=== PATIENT | female | born 1995 | race Caucasian/White ===

== ENCOUNTER 2017-02-08 15:42 | Outpatient (CLI) | payer MEDICAID, OTHER ==
[~2017-02-08] VITALS: Ht 162.6 cm; Wt 82.3 kg
[2017-02-08 16:02] VITALS: Ht 162.6 cm; Wt 82.3 kg
[2017-02-08 16:03] VITALS: BP 112/60; PULSE 115
[2017-02-08] MEDS ORDERED: PRENAT PO (16:05)
[2017-02-08 16:54] LABS: ADD UMIC YES; URINE BILIRUBIN (Dip) NEGATIVE (NEGATIVE); URINE BLOOD (Dip) NEGATIVE (NEGATIVE); URINE COLOR YELLOW (YELLOW); URINE GLUCOSE (Dip) NEGATIVE (NEGATIVE); URINE KETONES (Dip) 3+ (NEGATIVE); URINE LEUKOCYTE ESTERASE (Dip) NEGATIVE (NEGATIVE); URINE NITRITE (Dip) NEGATIVE (NEGATIVE); URINE TOTAL PROTEIN (Dip) TRACE (NEGATIVE); URINE UROBILINOGEN (Dip) 0.2 E.U./dL (0.1-1.0)
[2017-02-08 17:07] LABS: BACTERIA,URINE FEW; SQUAMOUS EPITHELIAL CELL,UR MODERATE; URINE RBCS NONE SEEN /HPF (0)
[2017-02-08] MEDS ORDERED: METOCLOPRAMIDE 10 MG INJ IV ONE (17:30)
[2017-02-08] MEDS ORDERED: LACTATED RINGER'S 1,000 ML IV SCH (17:30)
[2017-02-08 18:02] LABS: ADD SCAN DIFF NO
[2017-02-08 18:04] LABS: ABNORMAL IP MESSAGE 1; BASOPHILS % 0.2 % (0.0-2.0); HEMATOCRIT 34.5 % (37.0-47.0); HEMOGLOBIN 11.5 g/dl (12.0-16.0); LYMPHOCYTES # 0.6 10^3/ul (0.8-2.9); LYMPHOCYTES % 4.4 % (15.0-51.0); MEAN CORPUSCULAR HEMOGLOBIN 31.2 pg (29.0-33.0); MEAN CORPUSCULAR HGB CONC 33.3 g/dl (32.0-37.0); MEAN CORPUSCULAR VOLUME 93.5 fl (82.0-101.0); MONOCYTE # 0.5 10^3/ul (0.3-0.9); MONOCYTES % 3.4 % (0.0-11.0); NEUTROPHIL # 12.2 10^3/ul (1.6-7.5); NEUTROPHILS % 91.3 % (39.0-77.0); PLATELET COUNT 330 10^3/UL (140-415); RED BLOOD COUNT 3.69 10^6/ul (4.20-5.40); RED CELL DISTRIBUTION WIDTH 13.6 % (11.5-14.5); WHITE BLOOD COUNT 13.3 10^3/ul (4.8-10.8)
[2017-02-08 18:25] LABS: ALBUMIN 4.1 g/dl (3.3-4.9); ALBUMIN/GLOBULIN RATIO 1.32; BILIRUBIN,INDIRECT 0.2 mg/dl (0-1.1); BILIRUBIN,TOTAL 0.2 mg/dl (0.2-1.3); CALCIUM 8.5 mg/dl (8.4-10.2); CREATININE 0.43 mg/dl (0.44-1.00); POTASSIUM 3.5 mmol/L (3.5-5.1); TOTAL PROTEIN 7.2 g/dl (6.1-8.1)
--- NOTE | 2017-02-08 21:27 | TRIAGE ---
OB Triage Datetime Report Generated by CPN: 02/08/2017 21:27 Datetime: 02/08/2017 17:01 Stage of : OB Triage Datetime: 02/08/2017 15:58 Stage of : OB Triage Assessment Type: Triage EGA: 31.5 Maternal Assessment Level of Consciousness: Fully Conscious DTR's/Clonus: DTRs 2+; No Clonus Headache: Denies Blurred Vision: No Respiratory Effort: Unlabored; Regular Rhythm; Equal Expansion Breath Sounds, Left: Clear and Equal Breath Sounds, Right: Clear and Equal Nausea/Vomiting: Hx of Nausea/Vomiting RUQ Epigastric Pain: Denies Facial Edema: None Temperature Route: Axillary Fall Risk Assessment History of Falling: (0) No Secondary Diagnosis: (0) No Ambulatory Aid: (0) Bedrest/Nurse Assist IV Therapy: (0) No Gait: (0) Normal/Bedrest/Immobile Mental Status: (0) Oriented to Own Ability Fall Score: 0 Fall Risk Score Definition: No Risk: No action required Labor Evaluation Frequency: 0 Monitor Mode: External Resting Tone Donovan: Relaxed Heart Rate FHR Baseline Rate: 165 Monitor Mode: External US Variability: Moderate 6-25 bpm Accelerations: 10X10 Decelerations: None Category: Category I Pain Assessment Pain Scale: 0 Pain Presence: None/Denies Pain Type: N/A Pain Goal: 3 Pain Relief Measures: Comfort Measures Datetime: 02/08/2017 15:56 Time of Arrival: 02/08/2017 15:34 Arrived By: Ambulatory Arrived From: Home Chief Complaint: C/O VOMITING X3 TODAY, DENIES, BLEEDING, LEAKING OF FLUID OR UC'S. SM PAIN ON L OWER LEFT QUADRANT OF ABDOMEN FELT FOR A VERY SHORT TIME AFTER VOMITING. Movement: Present Contractions: Denies/Absent Rupture of Membranes: Denies Vaginal Bleeding: None Vaginal Discharge: Denies Recent Sexual Intercouse: Denies Abdominal Trauma: Not Applicable Patient Complaints: Nausea; Vomiting Initial Plan: MONITOR,
--- NOTE | 2017-02-08 21:55 | QN ---
Documentation Comment 21-year-old with IUP at 31 weeks and 5 days presented with complaint of vomiting 3 times today after she ate outside. She denies any diarrhea. Denies any fever or chills. Patient reports the same symptoms in other family member who ate the same food with her yesterday. She denies any vaginal bleeding, leaking of fluid decreased movement or contractions. Physical examination: General appearance alert and oriented 4 patient appears to be in mild distress. Abdomen: Soft, gravid, fundal height consistent with gestational age No abdominal tenderness, no guarding, no rigidity no evidence of acute abdomen Extremities: No calf tenderness, no click no edema Hematology - 72 Hrs Test 02/08/17 17:45 White Blood Count 13.310^3/ul (4.8-10.8) H Red Blood Count 3.6910^6/ul (4.20-5.40) L Hemoglobin 11.5g/dl (12.0-16.0) L Hematocrit 34.5% (37.0-47.0) L Mean Corpuscular Volume 93.5fl (82.0-101.0) Mean Corpuscular Hemoglobin 31.2pg (29.0-33.0) Mean Corpuscular Hemoglobin Concent 33.3g/dl (32.0-37.0) Red Cell Distribution Width 13.6% (11.5-14.5) Platelet Count 57196^3/UL (140-415) Mean Platelet Volume 10.0fl (7.4-10.4) Neutrophils % 91.3% (39.0-77.0) H Lymphocytes % 4.4% (15.0-51.0) L Monocytes % 3.4% (0.0-11.0) Eosinophils % 0.0% (0.0-7.0) Basophils % 0.2% (0.0-2.0) Nucleated Red Blood Cells % 0.0/100WBC (0.0-0.0) Neutrophils # 12.210^3/ul (1.6-7.5) H Lymphocytes # 0.610^3/ul (0.8-2.9) L Monocytes # 0.510^3/ul (0.3-0.9) Eosinophils # 0.010^3/ul (0.0-0.5) Basophils # 0.010^3/ul (0.0-0.1) Nucleated Red Blood Cells # 0.010^3/ul (0.0-0.0) Chemistry Test 02/08/17 17:45 Sodium Level 137mmol/L (135-144) Potassium Level 3.5mmol/L (3.5-5.1) Chloride Level 112mmol/L (97-110) H Carbon Dioxide Level 22mmol/L (21-31) Anion Gap 7 (8-16) L Blood Urea Nitrogen 7mg/dl (7-20) Creatinine 0.43mg/dl (0.44-1.00) L Glucose Level 81mg/dl (70-220) Calcium Level 8.5mg/dl (8.4-10.2) Total Bilirubin 0.2mg/dl (0.2-1.3) Direct Bilirubin 0.00mg/dl (0.00-0.20) Indirect Bilirubin 0.2mg/dl (0-1.1) Aspartate Amino Transf (AST/SGOT) 21IU/L (15-46) Alanine Aminotransferase (ALT/SGPT) 27IU/L (13-69) Alkaline Phosphatase 91IU/L (42-121) Total Protein 7.2g/dl (6.1-8.1) Albumin 4.1g/dl (3.3-4.9) Globulin 3.10g/dl (1.3-3.2) Albumin/Globulin Ratio 1.32 Assessment: IUP at 31 weeks and 5 days, no evidence of labor No obstetrics issue at this time Nausea and vomiting, after eating outside. Likely related to gastroenteritis. Patient received IV hydration and antiemetic Symptoms resolved. She passed p.o. challenge. Plan: DC home. Reglan as needed nausea P.o. hydration Strict labor precaution and kick count discussed. Follow-up with OB clinic in 1-2 days with her primary OB recommended. Patient verbalized understanding all above discussions. RACHEL SEPULVEDA MD February 08, 2017 21:55
== END 2017-02-08 20:38 | disposition home or self-care (01) ==
LOC: OBT 15:42 → L-D 15:42 → OBT 20:38
PROVIDERS: ATTEND Obstetrics & Gynecology
DX: O21.2 Late vomiting of pregnancy (principal); Z3A.31 31 weeks gestation of pregnancy
CPT/HCPCS: 36415; 80053; 81001; 85025; 96361; 96374; J2765; J7120; Z7500; G0463

== ENCOUNTER 2017-03-29 10:52 | Outpatient (CLI) | payer OTHER ==
[~2017-03-29] VITALS: Ht 167.6 cm; Wt 88.5 kg
[~2017-03-29 10:52] MED LIST: PRENAT PO
[2017-03-29 11:04] VITALS: Ht 167.6 cm; Wt 88.5 kg
[2017-03-29 11:05] VITALS: BP 116/65; PULSE 99; RESP 20
[2017-03-29] MEDS ORDERED: LACTATED RINGER'S 1,000 ML IV SCH (11:20)
[2017-03-29] MEDS ORDERED: CEFAZOLIN 2 GM/50 ML (PMX) 50 ML IVPB SCH (11:30)
[2017-03-29] MEDS ORDERED: CARBOPROST 250 MCG INJ IM PRN (11:30)
[2017-03-29] MEDS ORDERED: OXYTOCIN 30 UNITS/LR 500 ML IV SCH (11:30)
[2017-03-29] MEDS ORDERED: MISOPROSTOL 200 MCG TAB PR PRN (11:30)
[2017-03-29] MEDS ORDERED: OXYTOCIN 30 UNITS/LR 500 ML IV PRN (11:30)
[2017-03-29] MEDS ORDERED: METHYLERGONOVINE 0.2 MG INJ IM PRN (11:30)
--- NOTE | 2017-03-29 14:00 | RADRPT ---
PROCEDURE: OB ultrasound for biophysical profile CLINICAL INDICATION: Biophysical profile. TECHNIQUE: Multiple sonographic images of the pelvis were obtained. Transabdominal view of the gr avid uterus are available for review. The images were reviewed on a PACS workstation. COMPARISON: None FINDINGS: breathing movement = 2/2 tone = 2/2 motion = 2/2 Quantitative amniotic fluid volume = 2/2 JESSICA = 9.0 cm Single live intrauterine with cardiac activity at 130 beats per minute. There is a posterior placenta without previa. IMPRESSION: 1. Single living intrauterine gestation in cephalic position. 2. Biophysical profile = 8. 3. JESSICA = 9.0 cm. RPTAT: [facility] Physician Rodney Date Time Electronically viewed and signed by Angelito Bagley Physician on 03/29/2017 14:00 /
[2017-03-29] MEDS ORDERED: ACETAMINOPHEN 500 MG TAB PO STA (14:30)
--- NOTE | 2017-03-29 16:15 | PN ---
Triage Information Date/Time March 29 2017 Weeks of Gestation 38 weeks and 5 days : 1 Para: 0 Diabetes: none Hypertention: none Additional information 22-year-old with IUP at 30 weeks and 5 days with low pack pain noted in testing currently being followed by NST biweekly. She is here today for NST. She was noted to have some contractions on the monitor. She denied any leaking of fluid or vaginal bleeding or decreased movement. Cervical exam 1 fingertip long and closed. Repeat exam after observation for couple hours did not show any cervical change. Patient received Tylenol and hydration and her feeling of cramps resolved. Objective Vital Signs Date Time Temp Pulse Resp B/P Pulse Ox O2 Delivery O2 Flow Rate FiO2 03/29/17 11:05 98.2 99 20 116/65 Room Air Heart Rate: 130's Contractions: < 5 Minutes Apart Exam General appearance: Alert and oriented 4 patient does not appear to be in any acute distress. Abdomen: Soft, gravid, nontender, fundal height consistent with gestational age Vaginal exam: 1 fingertip, long and high Repeat cervical exam did not show any change NST: Category 1 BPP: 88 JESSICA: Normal Results/Medications Imaging Results PROCEDURE: OB ultrasound for biophysical profile CLINICAL INDICATION: Biophysical profile. TECHNIQUE: Multiple sonographic images of the pelvis were obtained. Transabdominal view of the gravid uterus are available for review. The images were reviewed on a PACS workstation. COMPARISON: None FINDINGS: breathing movement = 2/2 tone = 2/2 motion = 2/2 Quantitative amniotic fluid volume = 2/2 JESSICA = 9.0 cm Single live intrauterine with cardiac activity at 130 beats per minute. There is a posterior placenta without previa. IMPRESSION: 1. Single living intrauterine gestation in cephalic position. 2. Biophysical profile = 8/8. 3. JESSICA = 9.0 cm. Assessment/Plan IUP at 38 weeks and 5 days Low TERESA-A Increased risk of complications including delivery, IUGR and preeclampsia Currently being followed by NST and BPP biweekly False labor pain Resolved with p.o. hydration Patient was comfortable No evidence of labor DC home Continue testing twice a week and follow-up with perinatologist Patient has an appointment tomorrow Strict labor precaution and kick count and follow-up with her scheduled appointment discussed with the patient Patient verbalized understanding RACHEL SEPULVEDA MD Mar 29, 2017 16:15
--- NOTE | 2017-03-29 17:00 | TRIAGE ---
OB Triage Datetime Report Generated by CPN: 03/29/2017 17:00 Datetime: 03/29/2017 15:00 Labor Evaluation Frequency: 2-7 Monitor Mode: External Duration (sec)2399: 80-100 Quality: Mild Pattern: Normal: <= 5 Contractions in 10 Minutes Resting Tone Robbins: Relaxed Heart Rate FHR Baseline Rate: 140 Monitor Mode: External US FHR Baseline Changes: No Baseline Change Variability: Moderate 6-25 bpm Accelerations: 15X15 Decelerations: None Category: Category I Pain Assessment Pain Scale: 3 Pain Presence: Intermittent Pain Type: Contraction Pain Location: Abdomen Pain Goal: 0 Pain Relief Measures: Comfort Measures Datetime: 03/29/2017 14:23 Vaginal Exam Dilatation (cms): 1.0 Effacement (%): 70 Station: -2 Exam By: MAY Vaginal Bleeding: None Cervix, Consistency: Soft Cervix, Position: Posterior Presentation 'A': Cephalic Datetime: 03/29/2017 14:00 Labor Evaluation Frequency: X4 Monitor Mode: External Duration (sec)2399: 60 Quality: Mild Pattern: Normal: <= 5 Contractions in 10 Minutes Resting Tone Robbins: Relaxed Heart Rate FHR Baseline Rate: 140 Monitor Mode: External US FHR Baseline Changes: No Baseline Change Variability: Moderate 6-25 bpm Accelerations: 15X15 Decelerations: None Category: Category I Pain Assessment Pain Scale: 4 Pain Presence: Intermittent Pain Type: Contraction Pain Location: Abdomen Pain Goal: 0 Pain Relief Measures: Comfort Measures Datetime: 03/29/2017 13:00 Labor Evaluation Frequency: 4-10 Monitor Mode: External Duration (sec)2399: 40-60 Quality: Strong Pattern: Normal: <= 5 Contractions in 10 Minutes Resting Tone Robbins: Relaxed Heart Rate FHR Baseline Rate: 140 Monitor Mode: External US FHR Baseline Changes: No Baseline Change Variability: Moderate 6-25 bpm Accelerations: 15X15 Decelerations: None Category: Category I Pain Assessment Pain Scale: 3 Pain Presence: Intermittent Pain Type: Contraction Pain Location: Abdomen Pain Goal: 0 Pain Relief Measures: Comfort Measures Datetime: 03/29/2017 12:30 Labor Evaluation Frequency: 2-7 Monitor Mode: External Duration (sec)2399: 60-80 Quality: Strong Pattern: Normal: <= 5 Contractions in 10 Minutes Resting Tone Robbins: Relaxed Heart Rate FHR Baseline Rate: 140 Monitor Mode: External US FHR Baseline Changes: No Baseline Change Variability: Moderate 6-25 bpm Accelerations: 15X15 Decelerations: None Category: Category I Pain Assessment Pain Scale: 3 Pain Presence: Intermittent Pain Type: Contraction Pain Location: Abdomen Pain Goal: 0 Pain Relief Measures: Comfort Measures Datetime: 03/29/2017 12:00 Labor Evaluation Frequency: 3-6 Monitor Mode: External Duration (sec)2399: 60-80 Quality: Moderate Pattern: Normal: <= 5 Contractions in 10 Minutes Resting Tone Robbins: Relaxed Heart Rate FHR Baseline Rate: 140 Monitor Mode: External US FHR Baseline Changes: No Baseline Change Variability: Moderate 6-25 bpm Accelerations: 15X15 Decelerations: None Category: Category I Pain Assessment Pain Scale: 3 Pain Presence: Intermittent Pain Type: Contraction Pain Location: Abdomen Pain Goal: 0 Pain Relief Measures: Comfort Measures Membrane Status: Intact Datetime: 03/29/2017 11:47 Vaginal Exam Dilatation (cms): 1.0 Effacement (%): 60 Station: -3 Exam By: MAY Vaginal Bleeding: None Cervix, Consistency: Soft Cervix, Position: Posterior Presentation 'A': Cephalic Datetime: 03/29/2017 11:33 Labor Evaluation Frequency: 2.5-7 Monitor Mode: External Duration (sec)2399: 60-100 Quality: Strong Pattern: Normal: <= 5 Contractions in 10 Minutes Resting Tone Robbins: Relaxed Heart Rate FHR Baseline Rate: 140 Monitor Mode: External US FHR Baseline Changes: No Baseline Change Variability: Moderate 6-25 bpm Accelerations: 15X15 Decelerations: Variable Category: Category I Pain Assessment Pain Scale: 2 Pain Presence: Intermittent Pain Type: Contraction Pain Location: Abdomen Pain Goal: 0 Pain Relief Measures: Comfort Measures Membrane Status: Intact Datetime: 03/29/2017 11:00 Assessment Type: Triage Time of Arrival: 03/29/2017 10:50 EGA: 38.5 Arrived By: Wheelchair Arrived From: Home Chief Complaint: CONTRACTIONS STARTED AN HOUR AGO Movement: Present Time Contractions Began: 03/29/2017 10:00 Rupture of Membranes: Denies Vaginal Bleeding: Normal Show Vaginal Discharge: Present Recent Sexual Intercouse: Denies Abdominal Trauma: Not Applicable Patient Complaints: Contractions Time Provider Notified: 03/29/2017 12:01 Provider Notified: DR. SEPULVEDA Initial Plan: EFM Maternal Assessment Level of Consciousness: Fully Conscious DTR's/Clonus: DTRs 2+; No Clonus Headache: Denies Blurred Vision: No Respiratory Effort: Unlabored; Regular Rhythm; Equal Expansion Nausea/Vomiting: Denies RUQ Epigastric Pain: Denies Lower Extremities Edema: None Degree: None Upper Extremities Edema: None Degree: None Facial Edema: None Fall Risk Assessment History of Falling: (0) No Secondary Diagnosis: (0) No Ambulatory Aid: (0) Bedrest/Nurse Assist IV Therapy: (0) No Gait: (0) Normal/Bedrest/Immobile Mental Status: (0) Oriented to Own Ability Fall Score: 0 Fall Risk Score Definition: No Risk: No action required Datetime: 02/08/2017 20:22 Stage of : OB Triage Monitor Mode: External Quality: Mild Pattern: Normal: <= 5 Contractions in 10 Minutes Heart Rate FHR Baseline Rate: 150 Monitor Mode: External US FHR Baseline Changes: No Baseline Change Variability: Moderate 6-25 bpm Accelerations: 15X15 Decelerations: None Category: Category I Datetime: 02/08/2017 19:30 Stage of : OB Triage Datetime: 02/08/2017 19:10 Stage of : OB Triage Maternal Assessment Level of Consciousness: Fully Conscious Headache: Denies Blurred Vision: No Nausea/Vomiting: Hx of Nausea/Vomiting RUQ Epigastric Pain: Denies Facial Edema: None Monitor Mode: External Quality: Mild Pattern: Normal: <= 5 Contractions in 10 Minutes Resting Tone Robbins: Relaxed Heart Rate FHR Baseline Rate: 160 Monitor Mode: External US Variability: Moderate 6-25 bpm Accelerations: 15X15 Decelerations: None Category: Category I Pain Assessment Pain Scale: 0 Pain Presence: None/Denies Pain Type: N/A Datetime: 02/08/2017 15:58 EGA: 31.5 Fall Score: 0 Fall Risk Score Definition: No Risk: No action required
== END 2017-03-29 16:00 | disposition home or self-care (01) ==
LOC: OBT 10:52 → L-D 10:53 → OBT 16:00
PROVIDERS: ATTEND Obstetrics & Gynecology
DX: O47.1 False labor at or after 37 completed weeks of gestation (principal); Z3A.38 38 weeks gestation of pregnancy
CPT/HCPCS: 76818; Z7500; Z7610; G0463; J7120

== ENCOUNTER 2017-03-30 11:52 | Inpatient (IN) | payer OTHER ==
[~2017-03-30] VITALS: Ht 167.6 cm; Wt 86.9 kg
[2017-03-30 11:58] VITALS: BP 123/63; RESP 18; Ht 167.6 cm; Wt 86.9 kg
--- NOTE | 2017-03-30 13:27 | TRIAGE ---
OB Triage Datetime Report Generated by CPN: 03/30/2017 13:27 Datetime: 03/30/2017 13:03 Dilatation (cms): 4.5 Effacement (%): 90 Station: -2 Exam By: PS Membrane Status: Ruptured Membranes Rupture Method: Artificial Amniotic Fluid Color: Clear Amniotic Fluid Amount: Moderate Amniotic Fluid Odor: None Vaginal Bleeding: None Cervix, Consistency: Soft Cervix, Position: Anterior Presentation 'A': Cephalic Lie 'A': Longitudinal Datetime: 03/30/2017 13:00 Frequency: 2-4 Monitor Mode: External Duration (sec)2399: 60-80 Quality: Mild Pattern: Normal: <= 5 Contractions in 10 Minutes Resting Tone [place]: Relaxed FHR Baseline Rate: 140 Monitor Mode: External US FHR Baseline Changes: No Baseline Change Variability: Moderate 6-25 bpm Accelerations: 15X15 Decelerations: None Category: Category I Datetime: 03/30/2017 12:23 Category: Category II Datetime: 03/30/2017 12:19 Stage of : OB Triage Datetime: 03/30/2017 12:12 Dilatation (cms): 4.0 Effacement (%): 80 Station: -2 Exam By: Patrica PRECIADO Datetime: 03/30/2017 12:10 Stage of : OB Triage Assessment Type: Triage Level of Consciousness: Fully Conscious DTR's/Clonus: DTRs 2+; No Clonus Headache: Denies Blurred Vision: No Respiratory Effort: Unlabored; Regular Rhythm; Equal Expansion Breath Sounds, Left: Clear and Equal Breath Sounds, Right: Clear and Equal Nausea/Vomiting: Denies RUQ Epigastric Pain: Denies Upper Extremities Edema: None Degree: None Facial Edema: None Temperature Route: Oral History of Falling: (0) No Secondary Diagnosis: (0) No Ambulatory Aid: (0) Bedrest/Nurse Assist IV Therapy: (0) No Gait: (0) Normal/Bedrest/Immobile Mental Status: (0) Oriented to Own Ability Fall Score: 0 Fall Risk Score Definition: No Risk: No action required Monitor Mode: External Monitor Mode: External US Pain Scale: 5 Pain Presence: Intermittent Pain Type: Cramping Pain Location: Abdomen Pain Goal: 0 Datetime: 03/30/2017 12:08 Time of Arrival: 03/30/2017 11:50 EGA: 38.6 Arrived By: Wheelchair Arrived From: Dr. Shipley Chief Complaint: UC'S Movement: Present Contractions: Regular Time Contractions Began: 03/30/2017 06:00 Rupture of Membranes: Denies Vaginal Bleeding: None Vaginal Discharge: Denies Recent Sexual Intercouse: Denies Abdominal Trauma: Not Applicable Patient Complaints: Contractions Time Provider Notified: 03/30/2017 12:20 Provider Notified: DR. ABDULLAHI Initial Plan: EFMX2, CALL MD Datetime: 03/29/2017 11:00 EGA: 38.5 Fall Score: 0 Fall Risk Score Definition: No Risk: No action required Datetime: 02/08/2017 15:58 EGA: 31.5 Fall Score: 0 Fall Risk Score Definition: No Risk: No action required Membranes Ruptured Date/Time: 03/30/2017 13:03
[2017-03-30] MEDS ORDERED: IBUPROFEN 600 MG TAB PO PRN (13:30)
[2017-03-30] MEDS ORDERED: ACETAMINOPHEN/CODEINE #3 TAB PO PRN (13:30)
[2017-03-30] MEDS ORDERED: CARBOPROST 250 MCG INJ IM PRN (13:30)
[2017-03-30] MEDS ORDERED: OXYTOCIN 30 UNITS/LR 500 ML IV PRN (13:30)
[2017-03-30] MEDS ORDERED: MISOPROSTOL 200 MCG TAB PR PRN (13:30)
[2017-03-30] MEDS ORDERED: LACTATED RINGER'S 1,000 ML IV PRN (13:30)
[2017-03-30] MEDS ORDERED: LIDOCAINE 1% (MPF) 30 ML INJ INJ PRN (13:30)
[2017-03-30] MEDS ORDERED: METHYLERGONOVINE 0.2 MG INJ IM PRN (13:30)
[2017-03-30] MEDS ORDERED: OXYTOCIN 30 UNITS/LR 500 ML IV SCH ×2 (13:30)
[2017-03-30] MEDS ORDERED: BUTORPHANOL 2 MG INJ IV PRN (13:30)
[2017-03-30 13:35] LABS: ADD SCAN DIFF NO
[2017-03-30 13:38] LABS: BASOPHILS % 0.2 % (0.0-2.0); EOSINOPHILS % 0.1 % (0.0-7.0); HEMATOCRIT 33.1 % (37.0-47.0); HEMOGLOBIN 11.1 g/dl (12.0-16.0); LYMPHOCYTES # 1.7 10^3/ul (0.8-2.9); MEAN CORPUSCULAR HEMOGLOBIN 30.2 pg (29.0-33.0); MEAN CORPUSCULAR HGB CONC 33.5 g/dl (32.0-37.0); MEAN CORPUSCULAR VOLUME 89.9 fl (82.0-101.0); MEAN PLATELET VOLUME 10.9 fl (7.4-10.4); MONOCYTE # 0.7 10^3/ul (0.3-0.9); MONOCYTES % 4.5 % (0.0-11.0); NEUTROPHIL # 12.7 10^3/ul (1.6-7.5); NEUTROPHILS % 83.5 % (39.0-77.0); PLATELET COUNT 327 10^3/UL (140-415); RED BLOOD COUNT 3.68 10^6/ul (4.20-5.40); RED CELL DISTRIBUTION WIDTH 14.6 % (11.5-14.5); WHITE BLOOD COUNT 15.3 10^3/ul (4.8-10.8)
[2017-03-30 13:46] LABS: INR 0.91; PROTIME 12.3 Sec (12.2-14.2)
[2017-03-30 13:47] LABS: PARTIAL THROMBOPLASTIN TIME 29.2 Sec (25.0-35.0)
[2017-03-30] MEDS: LACTATED RINGER'S 1,000 ML IV SCH ×3 (13:47→21:29)
[2017-03-30] MEDS ORDERED: MINERAL OIL LIGHT 10 ML VIAL TOP PRN (14:00)
[2017-03-30] MEDS ORDERED: FENTAnyl 2MCG/ML-ROPIV 0.2% 100 ML ONE (14:11)
[2017-03-30] MEDS ORDERED: NALOXONE (0.4 MG/ML) INJ IV PRN (16:30)
[2017-03-30] MEDS: FENTAnyl 2MCG/ML-ROPIV 0.2% 100 ML BAG EPI SCH ×2 (20:03→22:28)
--- NOTE | 2017-03-31 01:38 | LDN ---
Date/Time of Note Date/Time of Note DATE: 03/31/17 TIME: 01:33 Delivery Summary normal vaginal delivery Weeks of Gestation 39weeks Placenta Delivered: Spontaneously Meconium: none Episiotomy: No Laceration repair: vag laceration 000ch gut Anesthesia type: Epidural Sponge & Needle done & correct: Yes All needle counts correct: Yes Any foreign bodies felt in the: No Problems: Delivery Information Sex Sex: male Apgars 1 Minute: 9 5 Minute: 9 Suctioning Nose & mouth suctioned at veronica: Yes Delee suction performed: No Umbilical Cord Umbilical cord with: 3 Vessels Cord presentations: no nuchal cord Cord Blood was obtained: Yes Mother & Baby Disposition Disposition Mom & Baby to Maternity; Good: Yes Mom transferred to: Other () Baby to NICU: No GENO CRESPO MD Mar 31, 2017 01:37
--- NOTE | 2017-03-31 01:44 | HP ---
Date/Time of Note Date/Time of Note DATE: 03/31/17 TIME: 01:38 OB - History Hx of Present Free Text/Dictation 21 y.o G!P0 was admitted to L&D in labor with ruptured membrane at 1303 03/30 admitted for expectant management Chief Complaint: u.c and rom Estimated Due Date: Apr 07, 2017 : 1 Para: 0 Spontaneous : 0 Therapeutic : 0 Care: Good Care Ultrasounds: Normal mid trimester US Obstetrical Complications: None Medical Complications: None Past Family/Social History * Past Medical, Surgical, Family and Obstetric Histories reviewed from chart. Blood Type: O+ Rubella: immune RPR/VDRL: Negative GBS Status: Negative HBsAG: Negative OB Admission Exam Vital Signs Vital Signs Vital Signs Date Time Temp Pulse Resp B/P Pulse Ox O2 Delivery O2 Flow Rate FiO2 03/30/17 11:58 98.0 18 123/63 Physical Exam HEENT: WNL Heart: Rhythm Normal Lungs: Clear, Equal Abdomen: WNL Extremities: Normal Reflexes: Normal Cervical Dilatation: 7cm Effacement: 100% Station: 0 Membranes: Ruptured Amniotic Fluid: Clear Heart Rate: 140's Accelerations: Accelerations Present Decelerations: No Decelerations Varibility: Moderate Contractions on Admission: < 5 Minutes Apart Intensity: Moderate Last 72 hours Lab Results CBC & BMP 03/30/17 13:15 OB Assessment/Plan Reason for admission: active labor Plan: Expectant Management GENO CRESPO MD Mar 31, 2017 01:44
[2017-03-31 02:15] VITALS: BP 118/56; PULSE 104; RESP 18
[2017-03-31] MEDS ORDERED: LANOLIN 7 GM TUBE TOP PRN (03:00)
[2017-03-31] MEDS ORDERED: CARBOPROST 250 MCG INJ IM PRN (03:00)
[2017-03-31] MEDS ORDERED: METHYLERGONOVINE 0.2 MG INJ IM PRN (03:00)
[2017-03-31] MEDS ORDERED: MISOPROSTOL 200 MCG TAB PR PRN (03:00)
[2017-03-31] MEDS ORDERED: OXYCODONE/ASPIRIN (4.88/325) TAB PO PRN ×2 (03:00)
[2017-03-31] MEDS ORDERED: WITCH HAZEL/GLYCERIN PAD PR PRN (03:00)
[2017-03-31] MEDS ORDERED: BENZOCAINE 20% 56 ML SPRAY TOP PRN (03:00)
[2017-03-31] MEDS ORDERED: OXYTOCIN 30 UNITS/LR 500 ML IV PRN (03:00)
[2017-03-31] MEDS ORDERED: ZOLPIDEM 5 MG TAB PO PRN (03:00)
[2017-03-31 03:45] VITALS: BP 112/56; PULSE 104; RESP 18
[2017-03-31] MEDS: IBUPROFEN 600 MG TAB PO SCH ×3 (05:57→17:53)
[2017-03-31 08:20] VITALS: BP 97/64; RESP 18
[2017-03-31] MEDS: SENNA/DOCUSATE NA (8.6MG/50MG) TAB PO SCH ×2 (09:37→21:05)
[2017-03-31 16:15] VITALS: BP 108/59; PULSE 104; RESP 17
[2017-03-31 20:00] VITALS: BP 113/69; PULSE 91; RESP 18
[2017-04-01] MEDS: IBUPROFEN 600 MG TAB PO SCH ×4 (00:25→17:32)
[2017-04-01 04:00] VITALS: BP 107/58; PULSE 87; RESP 18
[2017-04-01 08:20] VITALS: BP 113/57; PULSE 75; RESP 18
[2017-04-01] MEDS: SENNA/DOCUSATE NA (8.6MG/50MG) TAB PO SCH (09:00)
[2017-04-01 09:09] LABS: BASOPHILS % 0.3 % (0.0-2.0); EOSINOPHILS # 0.3 10^3/ul (0.0-0.5); EOSINOPHILS % 1.9 % (0.0-7.0); HEMATOCRIT 28.7 % (37.0-47.0); HEMOGLOBIN 9.2 g/dl (12.0-16.0); LYMPHOCYTES # 2.8 10^3/ul (0.8-2.9); LYMPHOCYTES % 17.8 % (15.0-51.0); MEAN CORPUSCULAR HGB CONC 32.1 g/dl (32.0-37.0); MEAN CORPUSCULAR VOLUME 93.5 fl (82.0-101.0); MONOCYTE # 0.9 10^3/ul (0.3-0.9); MONOCYTES % 5.8 % (0.0-11.0); NEUTROPHIL # 11.6 10^3/ul (1.6-7.5); NEUTROPHILS % 72.6 % (39.0-77.0); PLATELET COUNT 269 10^3/UL (140-415); RED BLOOD COUNT 3.07 10^6/ul (4.20-5.40); RED CELL DISTRIBUTION WIDTH 15.3 % (11.5-14.5); WHITE BLOOD COUNT 15.9 10^3/ul (4.8-10.8)
--- NOTE | 2017-04-01 10:54 | PD.PPDC ---
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
--- NOTE | 2017-04-01 10:58 | DS ---
Date/Time of Note Date/Time of Note DATE: 04/01/17 TIME: 10:56 Discharge Summary Admission/Discharge Info Admit Date/Time Mar 30, 2017 at 13:34 Discharge Date/Time April 01, 2017 at 11 AM Discharge Diagnosis Post normal vaginal delivery Patient Condition: Good Procedures Normal spontaneous vaginal delivery Hx of Present Illness Term Hospital Course Satisfactory uneventful Home Meds Reported Medications Multivit/Min/Fol Ac/Iron/Pren* ( S*) 1 Tab Tab, 1 TAB PO DAILY, TAB 02/08/17 Follow-up Plan instructions given recommended to make an appointment with the [facility] in 2 weeks for check Primary Care Provider [facility] Time spent on discharge: < 30 minutes Pending Labs Laboratory Tests Test 04/01/17 08:25 White Blood Count 15.910^3/ul (4.8-10.8) Red Blood Count 3.0710^6/ul (4.20-5.40) Hemoglobin 9.2g/dl (12.0-16.0) Hematocrit 28.7% (37.0-47.0) Mean Corpuscular Volume 93.5fl (82.0-101.0) Mean Corpuscular Hemoglobin 30.0pg (29.0-33.0) Mean Corpuscular Hemoglobin Concent 32.1g/dl (32.0-37.0) Red Cell Distribution Width 15.3% (11.5-14.5) Platelet Count 12622^3/UL (140-415) Mean Platelet Volume 11.0fl (7.4-10.4) Neutrophils % 72.6% (39.0-77.0) Lymphocytes % 17.8% (15.0-51.0) Monocytes % 5.8% (0.0-11.0) Eosinophils % 1.9% (0.0-7.0) Basophils % 0.3% (0.0-2.0) Nucleated Red Blood Cells % 0.0/100WBC (0.0-0.0) Neutrophils # 11.610^3/ul (1.6-7.5) Lymphocytes # 2.810^3/ul (0.8-2.9) Monocytes # 0.910^3/ul (0.3-0.9) Eosinophils # 0.310^3/ul (0.0-0.5) Basophils # 0.010^3/ul (0.0-0.1) Nucleated Red Blood Cells # 0.010^3/ul (0.0-0.0) MARYANNE SINGH MD Apr 01, 2017 10:58
[2017-04-01 15:30] VITALS: BP 111/70; PULSE 76; RESP 18
[2017-04-02] MEDS ORDERED: DIPHTH/TET/ACEL PERTUSS (ADULT) 0.5 ML VIAL IM* ONE (09:00)
== END 2017-04-01 18:35 | disposition home or self-care (01) | DRG 775 ==
LOC: L-D 11:52 → OBT 11:52 → L-D 12:28 → OBT 13:33 → L-D 13:34 → PP1 03-31 02:06
PROVIDERS: ADMIT Obstetrics & Gynecology; ATTEND Obstetrics & Gynecology
PROC: 10E0XZZ Delivery of Products of Conception, External Approach (ICD-10-PCS; principal; 2017-03-31)
PROC: 0UQGXZZ Repair Vagina, External Approach (ICD-10-PCS; 2017-03-31)
DX: O71.4 Obstetric high vaginal laceration alone (principal); Z37.0 Single live birth; Z3A.39 39 weeks gestation of pregnancy
CPT/HCPCS: 62319; 85025; 85610; 85730; 86592; 86900; 86901; 87340; 99464; J2590; J3010; J7120

== ENCOUNTER 2017-08-08 04:08 | Emergency (ER) | payer OTHER ==
[~2017-08-08] VITALS: Ht 162.6 cm; Wt 76.6 kg
[2017-08-08 04:12] VITALS: Ht 162.6 cm; Wt 76.6 kg
[2017-08-08] MEDS ORDERED: IBUP-1542 PO (04:43)
[2017-08-08] MEDS ORDERED: DICY10CA60 PO (04:43)
[2017-08-08] MEDS ORDERED: ONDA4TAB14 PO (04:43)
--- NOTE | 2017-08-08 05:00 | ERD ---
ER Documentation Chief Complaint Chief Complaint diarrhea since yesterday; denies AP HPI 21-year-old female presents here to emergency department for complaints of diarrhea episodes that started yesterday. Patient does not have any blood in his stool or black stool. Patient also is complaining of nausea. Patient denies any abdominal pain. Patient denies any fever or chills. Patient denies any sick contacts. Patient did not have any recent travel. ROS All systems reviewed and are negative except as per history of present illness. Medications Home Meds Active Scripts Ondansetron (Ondansetron Odt) 4 Mg Tab.rapdis, 4 MG PO Q6H Y for NAUSEA AND/OR VOMITING, #10 TAB Prov:CANDIDA LAM NP 08/08/17 Ibuprofen* (Motrin*) 600 Mg Tab, 600 MG PO Q6H Y for PAIN AND OR ELEVATED TEMP, #30 TAB Prov:CANDIDA LAM NP 08/08/17 Dicyclomine Hcl* (Bentyl*) 10 Mg Capsule, 10 MG PO QID, #20 CAP Prov:CANDIDA LAM IT [employer]ITY [employer]CHITECT 08/08/17 Reported Medications Multivit/Min/Fol Ac/Iron/Pren* ( S*) 1 Tab Tab, 1 TAB PO DAILY, TAB 02/08/17 Allergies Allergies: Coded Allergies: No Known Drug Allergies (Verified Allergy, Unknown, 08/08/17) PMhx/Soc Medical and Surgical Hx: pt denies Medical Hx, pt denies Surgical Hx History of Surgery: No Anesthesia Reaction: No Hx Neurological Disorder: No Hx Respiratory Disorders: No Hx Cardiac Disorders: No Hx Psychiatric Problems: No Hx Miscellaneous Medical Probl: No Hx Alcohol Use: No Hx Substance Use: No Hx Tobacco Use: No FmHx Family History: No coronary disease, No diabetes, No other Physical Exam Vitals Vital Signs Date Time Temp Pulse Resp B/P Pulse Ox O2 Delivery O2 Flow Rate FiO2 08/08/17 04:12 97.4 98 20 120/73 98 Physical Exam GENERAL: The patient is well developed and appropriate for usual state of health, in no apparent distress. CHEST: Clear to auscultation bilaterally. There are no rales, wheezes or rhonchi. HEART: Regular rate and rhythm. No murmurs, clicks, rubs or gallops. No S3 or S4. ABDOMEN: Soft, nontender and nondistended. Hyperactive bowel sounds. No rebound or guarding. No gross peritonitis. No gross organomegaly or masses. No Holden sign or McBurney point tenderness. BACK: No midline or flank tenderness. EXTREMITIES: Equal pulses bilaterally. There is no peripheral clubbing, cyanosis or edema. No focal swelling or erythema. Full range of motion. Grossly neurovascularly intact. NEURO: Alert and oriented. Cranial nerves 2-12 intact. Motor strength in all 4 extremities with 5/5 strength. Sensation grossly intact. Normal speech and gait. SKIN: There is no apparent rash or petechia. The skin is warm and dry. HEMATOLOGIC AND LYMPHATIC: There is no evidence of excessive bruising or lymphedema. No gross cervical, axillary, or inguinal lymphadenopathy. Procedures/MDM Medical decision making: Patient symptoms was likely is consistent with viral diarrhea. No symptoms of dehydration at this time. Patient does not have any active vomiting, only complaints of nausea. Patient denies any abdominal pain. Patient does not need any etiology exams or laboratory testing at this time, patient appears once stable. No symptoms of any abdominal emergencies. Patient was given prescription for Zofran ibuprofen Wilmayl, is advised to follow with primary care doctor in 2-3 days for reevaluation of symptoms. Patient was advised to return to emergency department for any worsening symptoms. Disposition: Home. Stable Departure Diagnosis: Primary Impression: Diarrhea Diarrhea type: unspecified type Qualified Code: R19.7 - Diarrhea, unspecified type Condition: Stable Patient Instructions: Treating Diarrhea Referrals: [facility] (PCP) CANDIDA LAM NP Aug 08, 2017 05:00
== END 2017-08-08 05:00 | disposition home or self-care (01) ==
LOC: FTE 04:08
DX: R19.7 Diarrhea, unspecified (principal)

== ENCOUNTER 2017-12-27 10:28 | Emergency (ER) | END 2017-12-27 14:58 | disposition home or self-care (01) ==

== ENCOUNTER 2018-08-10 01:00 | Inpatient (IN) | END 2018-08-11 17:10 | disposition home or self-care (01) | DRG 807 ==